=== PATIENT | male | born 1995 | race Caucasian/White ===

== ENCOUNTER 2020-05-01 10:35 | Emergency (ER) | payer OTHER ==
[~2020-05-01] VITALS: Ht 190.5 cm; Wt 120.4 kg
--- NOTE | 2020-05-01 10:40 | PHYS DOC ---
Past History Past Medical History: No Pertinent History General Adult EDM: Chief Complaint: FINGER INJURY HPI: HPI: 25M RHD p/w cut to distal right index finger. Was removing razor wire when he accidentally cut himself on the palmar aspect of the distal right index finger. No distal weakness or paresthesia. Unknown tetanus status. Review of Systems: Review of Systems: Gen: No fever, chills. Neuro: No weakness or paresthesia. MSK: Reports finger pain. Skin: Reports laceration. Remainder systems reviewed and negative unless otherwise specified. Heart Score: Risk Factors: Risk Factors: DM, Current or recent (<one month) smoker, HTN, HLP, family history of CAD, obesity. Risk Scores: Score 0 - 3: 2.5% MACE over next 6 weeks - Discharge Home Score 4 - 6: 20.3% MACE over next 6 weeks - Admit for Clinical Observation Score 7 - 10: 72.7% MACE over next 6 weeks - Early Invasive Strategies Physical Exam: PE: Gen: NAD. Well nourished. CV: RRR. Peripheral pulses intact. Resp: CTAB. MSK: No peripheral cyanosis. No edema. Approximately 1 cm laceration at the palmar aspect of the distal right index finger, brisk bleeding noted. SLIT with intact AROM of right index finger DIP/PIP/MCP joints. Neuro: A&Ox3. Strength & sensation grossly intact throughout. Skin. Warm. Dry. Psych: Appropriate mood & affect. EKG: EKG: [] Radiology/Procedures: Radiology/Procedures: [] Course & Med Decision Making: Course & Med Decision Making Pertinent Labs and Imaging studies reviewed. (See chart for details) In summary, 25-year-old [id number] male who presents for evaluation of distal right finger laceration at the palmar aspect. Neurovascularly intact. No suspicion for tendinous injury. Now status post repair. We discharged home with outpatient follow-up in 10 days for suture removal. Prophylactic Keflex. Tetanus updated. Return precautions given. Florina Disclaimer: Florina Disclaimer: This electronic medical record was generated, in whole or in part, using a voice recognition dictation system. Departure Departure: Impression: Primary Impression: Finger laceration Disposition: 01 HOME/RESIDENCE PRIOR TO ADM Condition: STABLE Referrals: PCP,FLORENCIO (PCP) Patient Instructions: Fingertip Laceration Additional Instructions: Please follow up with your primary doctor or return to the ED in 10 days for suture removal. Scripts Cephalexin (KEFLEX) 500 Mg Capsule 1 CAP PO BID for injury for 7 Days, #14 CAP 0 Refills Prov: RABIA HENSLEY DO 05/01/20 Justification of Admission: Justification of Admission: Justification of Admission Dx: N/A Laceration Repair Lac Repair Indication: right index finger laceration Procedure: The patient was placed in the appropriate position. Digital block with total 3 mL of 1% lidocaine without epi. The area was then copiously irrigated. The laceration was repaired with 5-0 nylon x 4 simple interrupted stitches. The wound area was then dressed with iodoform gauze and tube gauze. Total repaired wound length: 1.5 cm The patient tolerated the procedure well. Complications: None. RABIA HENSLEY DO May 01, 2020 10:40
[2020-05-01] MEDS ORDERED: LIDOCAINE 1% Multi-Dose 20 ML VIAL. IJ ONE (10:45)
[2020-05-01 10:54] VITALS: BP 180/108
[2020-05-01] MEDS ORDERED: DIPH,PERTUSS(ACELL),TET VAC/PF 0.5 ML SYRINGE. VAX IM ONE (11:00)
[2020-05-01] MEDS ORDERED: CEPH-264 PO (11:14)
== END 2020-05-01 11:17 | disposition home or self-care (01) ==
LOC: ER 10:35
DX: S61.210A Laceration without foreign body of right index finger without damage to nail, initial encounter (principal); W26.8XXA Contact with other sharp object(s), not elsewhere classified, initial encounter; Y93.89 Activity, other specified; Y92.89 Other specified places as the place of occurrence of the external cause; Y99.8 Other external cause status
CPT/HCPCS: 12001; 90471; 90715; 99283